=== PATIENT | female | born 1975 | race African-American/Black ===

== ENCOUNTER → 2017-01-24 | Outpatient (CLI) | payer MEDICAID | LOC: FIMAGING 17:29 | PROVIDERS: ATTEND Physician Assistant | DX: M25.562 Pain in left knee (principal) ==

== ENCOUNTER → 2017-01-30 | Outpatient (CLI) | payer MEDICAID | LOC: FIMAGING 14:56 | PROVIDERS: ATTEND Family Medicine Sports Medicine | DX: M70.50 Other bursitis of knee, unspecified knee (principal) ==

== ENCOUNTER → 2018-03-24 | Outpatient (CLI) | payer BC | LOC: FIMAGING 13:38 | PROVIDERS: ATTEND Obstetrics & Gynecology | DX: D25.9 Leiomyoma of uterus, unspecified (principal); N85.8 Other specified noninflammatory disorders of uterus ==

== ENCOUNTER 2018-04-19 08:14 | Emergency (ER) | payer BC ==
--- NOTE | 2018-04-19 08:25 | EDPHY ---
H & P Stated Complaint: worsening pain/swelling from poss stone in salivary gland Time Seen by Provider: 04/19/18 08:23 - Personal History LMP (Females 10-55): Now - Medical/Surgical History Hx Asthma: No Hx Chronic Respiratory Disease: No Hx Diabetes: No Hx Cardiac Disease: No Hx Renal Disease: No Hx Cirrhosis: No Hx Alcoholism: No Hx HIV/AIDS: No Hx Splenectomy or Spleen Trauma: No Other PMH: denies - Social History Smoking Status: Never smoked Constitutional: Initial Vital Signs Temperature (C) 36.7 C 04/19/18 08:19 Heart Rate 82 04/19/18 08:19 Respiratory Rate 18 04/19/18 08:19 Blood Pressure 127/86 H 04/19/18 08:19 O2 Sat (%) 97 04/19/18 08:19 O2 Delivery Mode Room Air Allergies/Adverse Reactions: No Known Allergies Allergy (Unverified 04/19/18 08:16) Home Medications: Medication Instructions Recorded Clindamycin HCl [Cleocin HCl] 150 mg PO QID #40 capsule 04/19/18 Penicillin G Potassium 04/19/18 oxyCODONE IR [Oxycodone Ir (*)] 5 - 10 mg PO Q6 PRN #20 tab 04/19/18 Medical Decision Making - Diagnostics Imaging Results: Imaging Impressions Neck CT 04/19/18 08:38 Impression: 1. There is a 9 x 6 x 11 mm sialolith at the anterior margin of the right submandibular Chaffee's duct with associated distention of the duct. There is no evidence of a submandibular abscess or adenopathy. 2. There is a 1.4 x 1.9 x 1.6 cm low-density cystic lesion associated with the central/left paracentral portion of the sella turcica with some suprasellar extension. This patient have any endocrine or visual abnormality? If there is further clinical concern, dedicated MR imaging of the brain with attention to the sella turcica could be considered. Findings were discussed with Saul Vences MD at 9:51 AM, on 04/19/2018. Imaging: Discussed imaging studies w/ call center nurse Radiologist, I viewed and interpreted images myself ED Course/Re-evaluation: CHIEF COMPLAINT: Swollen chin and neck HISTORY OF PRESENT ILLNESS: The patient is a 42 y/o female complaining of worsening pain and swelling in her tongue, chin, and neck onset 4 days ago. She was seen at [facility] who sent her to ENT. The ENT physician thought the patient's symptoms might be due to a salivary stone and prescribed the patient Penicillin and Decadron. These prescriptions mildly improved her symptoms, but the pain has increased since finishing the prescriptions. Denies headache, numbness, paresthesias, shortness of breath, chest pain, abdominal pain, urinary or bowel complaints, fever. REVIEW OF SYSTEMS: A 10 point review of systems was performed and is negative with the exception of the elements mentioned in the history of present illness. PHYSICAL EXAM: HR, BP, O2 Sat, RR. Temp noted General Appearance: Alert, well hydrated, appropriate, and non-toxic appearing. Head: Atraumatic without scalp tenderness or obvious injury Eyes: Pupils equal, round, reactive to light and accommodation, EOMI, no trauma , no injection. Ears: Clear bilaterally, no perforation, normal landmarks Nose: Atraumatic, no rhinorrhea, clear. Throat: There is no erythema or exudates, no lesions, normal tonsils, mucus membranes moist. Neck: Right submandibular lymphadenopathy. Supple and nontender. Respiratory: No retractions, no distress, no wheezes, and no accessory muscle use. Lungs are clear to auscultation bilaterally. Cardiovascular: Regular rate and rhythm, no murmurs, rubs, or gallops. Good capillary refill all extremities. Gastrointestinal: Abdomen is soft, nontender, non-distended, no masses, no rebound, no guarding, no peritoneal signs. Musculoskeletal: Normal active ROM of all extremities, atraumatic. Neurological: Alert, appropriate, and interactive. Nonfocal neuro. Skin: No rashes, good turgor, no nodules on palpation. Past medical history: Denies Past surgical history: Denies Family history: Denies Social history: Lives in [place], single, not employed DIAGNOSTICS/PROCEDURES/CRITICAL CARE TIME: CT Neck Soft Tissue: [id number] stone in the submandibular duct. There is also an abnormality of the sella turcica that will need an endocrinology follow up. DIFFERENTIAL DIAGNOSIS: The differential diagnosis for the patient's chin and neck pain included but was not limited to pneumonia, salivary stone, viral syndrome, meningitis, and sepsis. MEDICAL DECISION MAKING: The patient is a 42 y/o female presenting with worsening pain and swelling in her tongue, chin, and neck onset 4 days ago. On exam she has a well circumscribed, freely movable, painful, right submandibular lymphadenopathy. Labs and CT Neck Soft Tissue ordered; 1mg IV Dilaudid administered. 0953: I spoke with Dr. Ramachandran, radiologist, regarding neck CT. There is a [id number] stone in the submandibular duct. 1000: I consulted with Dr. Mcgarry, ENT, regarding this patient. He agrees to follow up with this patient tomorrow as an outpatient. I have prescribed her Clindamycin and OxyIR. 10mg IV Decadron administered prior to discharge. 1006: Reassessed patient and discussed imaging findings. She is comfortable with plan for outpatient follow up and prescriptions. - Data Points Laboratory Results: Laboratory Results 04/19/18 08:45 04/19/18 08:45 04/19/18 04/19/18 04/19/18 08:50 08:45 08:45 WBC 13.70 10^3/uL H 10^3/uL (3.80-9.50) RBC 4.67 10^6/uL 10^6/uL (4.18-5.33) Hgb 12.0 g/dL L g/dL (12.6-16.3) POC Hgb 12.9 gm/dL gm/dL (12.6-16.3) Hct 38.4 % % (38.0-47.0) POC Hct 38 % % (38-47) MCV 82.2 fL fL (81.5-99.8) MCH 25.7 pg L pg (27.9-34.1) MCHC 31.3 g/dL L g/dL (32.4-36.7) RDW 13.3 % % (11.5-15.2) Plt Count 453 10^3/uL H 10^3/uL (150-400) MPV 9.4 fL fL (8.7-11.7) Neut % (Auto) 86.4 % H % (39.3-74.2) Lymph % (Auto) 7.9 % L % (15.0-45.0) [place] % (Auto) 5.0 % % (4.5-13.0) Eos % (Auto) 0.0 % L % (0.6-7.6) Baso % (Auto) 0.1 % L % (0.3-1.7) Nucleat RBC Rel Count 0.0 % % (0.0-0.2) Absolute Neuts (auto) 11.83 10^3/uL H 10^3/uL (1.70-6.50) Absolute Lymphs (auto) 1.08 10^3/uL 10^3/uL (1.00-3.00) Absolute Monos (auto) 0.69 10^3/uL 10^3/uL (0.30-0.80) Absolute Eos (auto) 0.00 10^3/uL L 10^3/uL (0.03-0.40) Absolute Basos (auto) 0.02 10^3/uL 10^3/uL (0.02-0.10) Absolute Nucleated RBC 0.00 10^3/uL 10^3/uL (0-0.01) Immature Gran % 0.6 % % (0.0-1.1) Immature Gran # 0.08 10^3/uL 10^3/uL (0.00-0.10) POC Sodium 142 mEq/L mEq/L (135-145) Sodium 144 mEq/L mEq/L (135-145) POC Potassium 3.6 mEq/L mEq/L (3.3-5.0) Potassium 4.1 mEq/L mEq/L (3.3-5.0) POC Chloride 108 mEq/L mEq/L (97-110) Chloride 108 mEq/L mEq/L (97-110) Carbon Dioxide 22 mEq/l mEq/l (22-31) Anion Gap 14 mEq/L mEq/L (8-16) POC BUN 12 mg/dL mg/dL (7-23) BUN 12 mg/dL mg/dL (7-23) Creatinine 1.0 mg/dL mg/dL (0.6-1.0) POC Creatinine 1.0 mg/dL mg/dL (0.6-1.0) Estimated GFR > 60 Glucose 116 mg/dL H mg/dL (70-100) POC Glucose 120 mg/dL H mg/dL (70-100) Calcium 9.5 mg/dL mg/dL (8.5-10.4) Medications Given: Discontinued Medications Dexamethasone (Decadron Injection) 10 mg IVP EDNOW ONE Stop: 04/19/18 10:04 Last Admin: 04/19/18 10:07 Dose: 10 mg Hydromorphone HCl (Dilaudid) 1 mg IVP EDNOW ONE Stop: 04/19/18 08:52 Last Admin: 04/19/18 09:26 Dose: 1 mg Oxycodone/Acetaminophen (Percocet 5/325mg Prepack#4) 1 btl TAKEHOME EDNOW ONE Stop: 04/19/18 10:05 Last Admin: 04/19/18 10:10 Dose: 1 btl Point of Care Test Results: Chemistry 04/19/18 08:50 POC Sodium 142 mEq/L mEq/L (135-145) POC Potassium 3.6 mEq/L mEq/L (3.3-5.0) POC Chloride 108 mEq/L mEq/L (97-110) POC BUN 12 mg/dL mg/dL (7-23) POC Creatinine 1.0 mg/dL mg/dL (0.6-1.0) POC Glucose 120 mg/dL H mg/dL (70-100) ISTAT H&H 04/19/18 08:50 POC Hgb 12.9 gm/dL gm/dL (12.6-16.3) POC Hct 38 % % (38-47) Departure - Departure Disposition: Home, Routine, Self-Care Clinical Impression: Submandibular duct obstruction Condition: Good Instructions: Sialoadenitis (ED) Additional Instructions: 1. Follow up with Dr. Mcgarry in his office tomorrow. 2. Take Clindamycin as prescribed. 3. Take OxyIR as prescribed for pain. 4. There is also an abnormality of the sella turcica that will need an endocrinology follow up. You have been referred to Dr. Muhammad. Referrals: Jayme Acosta [Primary Care Provider] - As per Instructions Lloyd Muhammad MD [Medical Doctor] - As per Instructions Alvarado Mcgarry MD [Medical Doctor] - As per Instructions Prescriptions: Clindamycin HCl [Cleocin HCl] 150 mg PO QID #40 capsule oxyCODONE IR [Oxycodone Ir (*)] 5 - 10 mg PO Q6 PRN #20 tab PRN Reason: Pain, Severe Report Scribed for: Saul Vences Report Scribed by: Hailee Umaña Date of Report: 04/19/18 Time of Report: 08:29
[2018-04-19] MEDS ORDERED: HYDROmorphONE/DILAUDID 2 MG/ML INJ IVP ONE (08:51)
[2018-04-19 08:59] LABS: PLATELET COUNT 453 10^3/uL (150-400)
[2018-04-19] MEDS ORDERED: IOPAMIDOL (ISOVUE-300) 100 ML BTL ONE (08:59)
[2018-04-19] MEDS ORDERED: HYDROmorphONE/DILAUDID 1 MG/ML INJ ONE (09:24)
[2018-04-19] MEDS ORDERED: DEXAMETHASONE 10 MG/ML VIAL IVP ONE (10:03)
[2018-04-19] MEDS ORDERED: OXYCODONE/APAP 5/325MG PREPACK#4 BTL TAKEHOME ONE (10:04)
[2018-04-19 10:16] VITALS: BP 120/80
== END 2018-04-19 10:16 | disposition home or self-care (01) ==
DX: K11.8 Other diseases of salivary glands (principal)
CPT/HCPCS: 82435-PO; 82565-PO; 82947-PO; 84132-PO; 84295-PO; 84520-PO; 85014-PO; 96374; J1100; J1170; Q9967

== ENCOUNTER 2018-04-23 09:00 | Observation (INO) | payer BC ==
[2018-04-23] MEDS ORDERED: LR 1,000 ML IV ONE (09:38)
[2018-04-23] MEDS ORDERED: MIDAZOLAM 2 MG/2 ML VIAL IVP ONE (09:39)
--- NOTE | 2018-04-23 09:39 | PDANEPAE ---
ANE History of Present Illness R submandibular stone excision ANE Past Medical History - Cardiovascular History Hx Hypertension: No Hx Arrhythmias: No Hx Chest Pain: No Hx Coronary Artery / Peripheral Vascular Disease: No Hx CHF / Valvular Disease: No Hx Palpitations: No - Pulmonary History Hx COPD: No Hx Asthma/Reactive Airway Disease: Yes Hx Recent Upper Respiratory Infection: No Hx Oxygen in Use at Home: No Hx Sleep Apnea: No Sleep Apnea Screening Result - Last Documented: Negative Pulmonary History Comment: hx of asthma- pt denies any problems currently - Neurologic History Hx Cerebrovascular Accident: No Hx Seizures: No Hx Dementia: No - Endocrine History Hx Diabetes: No - Renal History Hx Renal Disorders: No - Liver History Hx Hepatic Disorders: No - Neurological & Psychiatric Hx Hx Neurological and Psychiatric Disorders: Yes Neurological / Psychiatric History Comment: anxiety - Cancer History Hx Cancer: No - Congenital Disorder History Hx Congenital Disorders: No - GI History Hx Gastrointestinal Disorders: Yes Gastrointestinal History Comment: hx of gastric bypass - Other Health History Other Health History: none - Chronic Pain History Chronic Pain: No - Surgical History Prior Surgeries: gastric bypass. panniculectomy ANE Review of Systems Review of systems is: negative Review of Systems: - Exercise capacity METS (RN): 4 METS ANE Patient History - Allergies Allergies/Adverse Reactions: No Known Allergies Allergy (Verified 04/23/18 09:40) - Home Medications Home medications: home medication list seen and reviewed Home Medications: Amitriptyline HCl [Elavil 50 mg (*)] 50 mg PO HS 04/23/18 [Last Taken 04/22/18] Clindamycin HCl [Clindamycin] 300 mg PO TID 04/23/18 [Last Taken 04/22/18 21:00] Ferrous Sulfate [Ferrous Sulf 325 MG (*)] 325 mg PO DAILY 04/23/18 [Last Taken 04/22/18] Topiramate [Topamax 25MG (*)] 25 mg PO BID 04/23/18 [Last Taken 04/22/18 21:00] Zolpidem Tartrate [Ambien 5MG (*)] 10 mg PO HS 04/23/18 [Last Taken 04/22/18] clonazePAM [klonoPIN (*)] 1 mg PO BID PRN 04/23/18 [Last Taken 04/21/18] oxyCODONE IR [Oxycodone Ir (*)] 5 mg PO DAILY 04/23/18 [Last Taken 04/22/18] - NPO status NPO Since - Liquids (Date): 04/23/18 NPO Since - Liquids (Time): 05:00 - Anes Hx Anes Hx: no prior problems - Smoking Hx Smoking Status: Never smoked - Family Anes Hx Family Anes Hx: none Family Hx Anesthesia Complications: none ANE Labs/Vital Signs - Vital Signs Vital Signs: reviewed preoperatively; see RN documention for details Height: 175.26 cm Weight: 104.326 kg ANE Physical Exam - Airway Neck exam: decreased ROM Mallampati Score: Class 2 Mouth exam: normal dental/mouth exam - Pulmonary Pulmonary: no respiratory distress - Cardiovascular Cardiovascular: regular rate and rhythym - ASA Status ASA Status: II ANE Anesthesia Plan Anesthesia Plan: general endotracheal anesthesia
[2018-04-23] MEDS ORDERED: DEXAMETHASONE 10 MG/ML VIAL IVP ONE (09:45)
[2018-04-23] MEDS ORDERED: ceFAZolin 2 GM/DEXTROSE 100 ML IV ONE (09:45)
--- NOTE | 2018-04-23 09:45 | PDHPUP ---
History & Physical Update H&P update statement: This history and physical update is based on an assessment of the patient which was completed after admission or registration (within 24 hours), but prior to the surgery/procedure. H&P update: H&P reviewed & patient examined, no change in patient's condition since H&P completed
[2018-04-23] MEDS ORDERED: LIDOCAINE 1% 300 MG/30 ML SDV ONE (10:09)
[2018-04-23] MEDS ORDERED: BACITRACIN ZINC 14.2 GM OINTTUBE TP ONE (10:09)
[2018-04-23] MEDS ORDERED: EPINEPHrine 1 MG/ML INJ ONE (10:10)
[2018-04-23] MEDS ORDERED: DEXAMETHASONE 4 MG/ML VIAL ONE (10:35)
[2018-04-23] MEDS ORDERED: LIDOCAINE 2% 100 MG/5 ML SYR ONE (10:35)
[2018-04-23] MEDS ORDERED: ROCURONIUM 50 MG/5 ML VIAL ONE ×2 (10:35→12:22)
[2018-04-23] MEDS ORDERED: ONDANSETRON 4 MG/2 ML VIAL ONE ×2 (10:35→11:14)
[2018-04-23] MEDS ORDERED: fentaNYL 250 MCG/5 ML INJ ONE (10:36)
[2018-04-23] MEDS ORDERED: PROPOFOL 200 MG/20 ML VIAL ONE ×2 (10:37→12:21)
[2018-04-23] MEDS ORDERED: GLYCOPYRROLATE 0.2 MG/1 ML VIAL ONE ×2 (11:14→12:40)
[2018-04-23] MEDS ORDERED: NEOSTIGMINE METHYLSULFATE 10 MG/10 ML MDV ONE (11:14)
[2018-04-23] MEDS ORDERED: MEPERIDINE 25 MG/0.5 ML AMP IVP PRN ×2 (11:26→13:25)
[2018-04-23] MEDS ORDERED: HYDROCODONE/APAP 5/325 TAB PO PRN ×2 (11:26→13:25)
[2018-04-23] MEDS ORDERED: ACETAMINOPHEN 500 MG TAB PO PRN ×2 (11:26→13:25)
[2018-04-23] MEDS ORDERED: ALBUTEROL 3 ML DEYVIAL IH PRN (11:26)
[2018-04-23] MEDS ORDERED: HYDROmorphONE/DILAUDID 1 MG/ML INJ IVP PRN ×2 (11:26→13:25)
[2018-04-23] MEDS ORDERED: NALOXONE HCL 0.4 MG/ML INJ IVP PRN ×2 (11:26→13:25)
[2018-04-23] MEDS ORDERED: oxyCODONE IR 5 MG TAB PO PRN ×2 (11:26→13:25)
[2018-04-23] MEDS ORDERED: DEXAMETHASONE 4 MG/ML VIAL IVP PRN (11:26)
[2018-04-23] MEDS ORDERED: ONDANSETRON 4 MG/2 ML VIAL IVP PRN ×2 (11:26→13:07)
[2018-04-23] MEDS ORDERED: PROMETHAZINE HCL 25 MG/ML INJ IVP PRN ×2 (11:26→13:25)
--- NOTE | 2018-04-23 11:30 | POSTANESTH ---
Post Anesthetic Evaluation Cardiovascular Status: Similar to Pre-Op Cond Respiratory Status: Similar to Pre-op Cond. Level of Consciousness/Mental Status: Can Participate in Eval, Mildly Sleepy, Arousable Pain Control: Adequate, Prn Tx Ordered Nausea/Vomiting Control: Adequate, Prn Tx Ordered Complications Possibly Related to Anesthesia: None Noted
--- NOTE | 2018-04-23 13:02 | POSTOPPROG ---
Post Op Note Date of Operation: 04/23/18 Surgeon: Alvarado Mcgarry Gas Pumper: Bob Urrutia MD, Gisele BHATIA Anesthesiologist: ASHOK Anesthesia: GET(General Endotracheal) Pre-op Diagnosis: Right submandibular gland sialoadenitis and sialolithiasis Post-op Diagnosis: Same Indication: Severe right submandibular gland infection with impacted stone Procedure: Excision of right submanbibular gland Findings: severely indurated gland, the marginal br of CN VII was preserved Inf/Abcess present in the surg proc area at time of surgery?: Yes Depth: Organ Space (pus and swelling of the right submand gland) EBL: 50-100 Complications: none Drains: [place] (1/4" sushma drain) Specimen(s): right submandibular gland
[2018-04-23] MEDS ORDERED: D5W LR 1,000 ML IV SCH (13:15)
[2018-04-23] MEDS ORDERED: fentaNYL 100 MCG/2 ML INJ ONE (13:24)
[2018-04-23] MEDS ORDERED: fentaNYL 100 MCG/2 ML INJ IVP PRN (13:25)
[2018-04-23] MEDS: fentaNYL 100 MCG/2 ML INJ IVP PRN ×2 (13:28→13:40)
--- NOTE | 2018-04-23 13:41 | GOP ---
[f rep st] OPERATIVE REPORT DATE OF OPERATION: 04/23/2018 SURGEON: Alvarado Mcgarry MD TELETYPEWRITER INSTALLER: Bob Urrutia MD and Gisele Farah PA-C ANESTHESIA: General. PREOPERATIVE DIAGNOSIS: Right submandibular gland sialoadenitis and sialolithiasis. POSTOPERATIVE DIAGNOSIS: Right submandibular gland sialoadenitis and sialolithiasis. PROCEDURE PERFORMED: Right submandibular gland excision. FINDINGS: Severely indurated swollen right submandibular gland. The marginal mandibular branch of t he right facial nerve was identified and preserved. The lingual nerve and hypoglossal nerve were hakeem ntified and preserved. I did not find the stone within the duct and I could not palpate it within th e gland, although it may have been present. We also probed the right submandibular duct with lacrima l probes and did not locate a stone from the transoral direction either. SPECIMENS: Right submandibular gland. ESTIMATED BLOOD LOSS: Less than 50 cc. INDICATIONS: The patient is a 42-year-old woman with severe right submandibular gland sialoadenitis, is found to have a stone within the gland. She was not responding well to antibiotic therapy and pr esents for surgical intervention in hopes of resolving this problem. DESCRIPTION OF PROCEDURE: Patient was taken the OR, positively identified, placed on monitors and ge neral anesthesia was induced. The patient was placed under general anesthesia. Her neck was prepped and draped in normal sterile fashion. An incision was marked and infiltrated with 1% lidocaine with 1:100,000 of epinephrine. The skin was sharply incised. Dissection was then carried down to the platysma. Dissection continue d down staying inferiorly along the lower edge of the gland. We then find the capsule superiorly. T here was some very enlarged facial lymph nodes in the area that were identified as well. I was able locate the marginal mandibular branch of the facial nerve. This was double checked with the [place] n erve stimulator low at a 0.4 setting of power, and indeed, the lower lip did move. This nerve was le ft undisturbed, and we continued to operate staying far below this region and lifting fascia up super iorly to help protect the nerve itself. The facial vein was identified, clamped, cut, and ligated wi th 3-0 Vicryl. The digastric muscle was identified. This forming the deep and inferior portion of t he dissection. Following the fascial planes, the gland was rotated anteriorly. The facial artery wa s not identified, presumably it is behind the gland and we did not have to deal with it at all. The hypoglossal and lingual nerves were identified after pulling the mylohyoid muscle anteriorly. The st ellate ganglion was divided. The submandibular duct was clamped, cut, and ligated. The gland was re moved from the wound and palpated. I did not feel a stone. I then palpated the floor of the mouth f rom below and was unable to identify any stone. Dr. Urrutia then placed a Champ mouth gag in the patient's mouth and felt the floor of the mouth palpa ting from transorally while I had my finger in the wound from below. We were unable to feel a stone. He then passed a lacrimal probe along the duct to the point where I had tied it off, and again, we did not feel any stone. At this point, the case was terminated as the decision being made that the stone most likely was with in the indurated and swollen gland, and no longer present within the duct, although there is a small possibility this could be the case. The wound was irrigated with sterile saline. The [place] drain was placed in the wound, and the wound was then closed with interrupted 3-0 Vicryl, 4-0 Vicryl, and 5 -0 Prolene, followed by a sterile dressing. The patient tolerated procedure well. COMPLICATIONS: None. /[id number]/MODL
[2018-04-23] MEDS: DEXAMETHASONE 4 MG/ML VIAL IVP SCH ×2 (14:56→21:44)
[2018-04-23] MEDS: CLINDAMYCIN 900 MG/DEXTROSE 50 ML IV SCH ×2 (15:19→21:45)
[2018-04-23] MEDS: HYDROCOD/APAP 7.5/325 IN 15ML UDCUP PO PRN ×2 (15:53→20:34)
--- NOTE | 2018-04-23 18:45 | SOAPPROG ---
SOAP Progress Note Assessment/Plan: Assessment: Pt doing well, good pain control. Facial nerve functioning well. Plan: Discharge in the morning, likely can remove the sushma drain at that time. 04/23/18 18:44 Subjective: I feel OK Objective: Vital Signs Temp Pulse Resp BP Pulse Ox 36.8 C 89 18 150/94 H 98 04/23/18 16:35 04/23/18 17:35 04/23/18 17:35 04/23/18 17:35 04/23/18 17:35 04/22/18 04/23/18 04/24/18 05:59 05:59 05:59 Intake Total 960 Output Total 40 Balance 920 Neck flat and FN working fine. ICD10 Worksheet Patient Problems: Problems Problem Status Onset Submandibular gland infection Acute - ICD10 Problem Qualifiers (1) Submandibular gland infection
[2018-04-24] MEDS: CLINDAMYCIN 900 MG/DEXTROSE 50 ML IV SCH (05:09)
[2018-04-24] MEDS: DEXAMETHASONE 4 MG/ML VIAL IVP SCH (05:09)
[2018-04-24 07:23] VITALS: BP 125/79
[2018-04-24] MEDS: HYDROCOD/APAP 7.5/325 IN 15ML UDCUP PO PRN (08:11)
--- NOTE | 2018-04-24 08:41 | SOAPPROG ---
SOAP Progress Note Assessment/Plan: pt s/p submandibular galnd excision. doing very well. O- facial nerve intact, drain removed. Plan:Pt doing well. f/u next week for suture removal. Discussed wound care 04/24/18 08:40 Objective: Vital Signs Temp Pulse Resp BP Pulse Ox 36.6 C 81 16 125/79 H 92 04/24/18 07:21 04/24/18 07:21 04/24/18 07:21 04/24/18 07:21 04/24/18 07:21 04/23/18 04/24/18 04/25/18 05:59 05:59 05:59 Intake Total 960 Output Total 890 Balance 70 ICD10 Worksheet Patient Problems: Problems Problem Status Onset Submandibular gland infection Acute
--- NOTE | 2018-04-24 08:48 | ASMTLACE ---
ENEDINA Length of stay for Answers: 1 day current admission Comorbidities - select Answers: Other Notes: Hx of gastric bypass all that apply # of Emergency department Answers: 1-2 visits in the last 6 months Social determinants Answers: Mental health diagnosis (anxiety, depression, pers onality disorders, etc.) Score: 6 Date Signed: 04/24/2018 08:48 AM Electronically Signed By:Alta Guy RN
--- NOTE | 2018-04-24 08:49 | ASMTCMCOM ---
CM Note CM Note Notes: Cart reviewed. 42 year old female s/p mandibular gland stone removal. No needs anticipated at this time. CM avaible should needs arise. Plan: Likely home independently. Date Signed: 04/23/2018 04:07 PM Electronically Signed By:lAta Guy RN
== END 2018-04-24 10:22 | disposition home or self-care (01) ==
LOC: FSGY 09:00 → F3E 13:03
PROVIDERS: ADMIT Otolaryngology; ATTEND Otolaryngology
PROC: 0CBG0ZZ Excision of Right Submaxillary Gland, Open Approach (ICD-10-PCS; principal; 2018-04-23 10:30)
DX: K11.21 Acute sialoadenitis (principal); K11.5 Sialolithiasis; Z98.84 Bariatric surgery status
CPT/HCPCS: 42440; G0378; J0171; J0690; J1100; J2001; J2250; J2405; J2704; J3010

== ENCOUNTER 2018-09-20 09:51 | Emergency (ER) | payer BC ==
[2018-09-20 09:55] VITALS: BP 146/89
--- NOTE | 2018-09-20 10:17 | EDPHY ---
General Time Seen by Provider: 09/20/18 10:10 Narrative: CHIEF COMPLAINT: Wrist pain HISTORY OF PRESENT ILLNESS: Patient presents by private vehicle with complaints of right wrist pain. The pain is present approximately a month. Was feeling better until last week, when she had to move residence. She states pain has return to the right wrist. It is located primarily just below the thumb. Moderate to severe with movement. Improved at rest. Does not radiate. No numbness, tingling weakness but no redness or warmth. No direct trauma or injury. She has no pain in the ipsilateral forearm, elbow or shoulder. No anticoagulation use. No other associated complaints or modifying factors. DOMINANT EXTREMITY: Right-hand dominant ESTABLISHED ORTHOPEDIST: None REVIEW OF SYSTEMS: Ten systems reviewed and are negative unless otherwise noted in the HPI PAST SURGICAL HISTORY: No surgical history SOCIAL HISTORY: Nonsmoker. Lives independently. Works for [email or web address]. FAMILY HISTORY: Noncontributory EXAMINATION: General Appearance: Alert, no distress Cardiovascular: Radial pulses are symmetric 2+. Brisk cap refill the fingers the right hand Neurological: A&O, light and 2 point sensory symmetric. Interossei and insurance service representative strength symmetric. No wrist drop. Skin: Warm and dry, no rash. No petechiae. No purpura. No lymphangitis. No evidence of flexor tenosynovitis. Extremities: Tenderness of the right wrist generally. No snuffbox tenderness. There is no bony tenderness of the metacarpals, phalanges on the right. There is no tenderness of the right olecranon or radial head. Range of motion upper extremities symmetric. All compartments are soft in the upper extremities. Psychiatric: Mood and affect normal DIFFERENTIAL DIAGNOSES: Including but not limited to de quervain tenosynovitis, sprain, strain, fracture , dislocation, subluxation MDM: 10:14 a.m. Right wrist pain that has been present for approximately a month with acute exacerbation after moving this past week. She does have tenderness in the right wrist consistent with a de quervain tenosynovitis. There is no evidence of cellulitis, DVT, compartment syndrome osteomyelitis. No bony tenderness in the hand, right elbow or forearm. Range of motion is intact but painful. There is no evidence of cellulitis or flexor tenosynovitis. I have ordered x- ray as she has not yet been evaluated by this. She is in no acute distress. 10:20 a.m. X-ray as read by me, without radiologist, reveals no acute fracture dislocation. I placed the patient in a thumb spica splint to protect for possible de quervain tenosynovitis. We discussed ice, elevation. We discussed discontinuation of her previous anti-inflammatories and I will place her on a prescription for meloxicam. Discussed short course of steroid. We discussed ED precautions for numbness, tingling, weakness or wrist drop. We discussed follow up with Orthopedics for definitive care. I have answered all her questions. She states that she does not need a work note. She is discharged home stable condition. SUPERVISION: This patient was independently evaluated without direct involvement of or examination by the attending physician. - Diagnostics Imaging: I viewed and interpreted images myself - History Smoking Status: Never smoked - Objective Vital Signs: Initial Vital Signs Temperature (C) 98.1 F 09/20/18 09:52 Heart Rate 78 09/20/18 09:52 Respiratory Rate 16 09/20/18 09:52 Blood Pressure 146/89 H 09/20/18 09:52 O2 Sat (%) 98 09/20/18 09:52 O2 Delivery Mode Room Air Allergies/Adverse Reactions: No Known Allergies Allergy (Verified 09/20/18 09:52) Home Medications: Medication Instructions Recorded Amitriptyline HCl [Elavil 50 mg 50 mg PO HS 04/23/18 (*)] Ferrous Sulfate [Ferrous Sulf 325 325 mg PO DAILY 04/23/18 MG (*)] Topiramate [Topamax 25MG (*)] 25 mg PO BID 04/23/18 Zolpidem Tartrate [Ambien 5MG (*)] 10 mg PO HS 04/23/18 clonazePAM [klonoPIN (*)] 1 mg PO BID PRN 04/23/18 Meloxicam 7.5 mg PO DAILY #15 tablet 09/20/18 methylPREDNISolone [Medrol Dose 1 each PO AD #1 ea 09/20/18 Ted] Departure - Departure Disposition: Home, Routine, Self-Care Clinical Impression: De Quervain's tenosynovitis, right Condition: Good Instructions: De Quervain Disease (ED), Wrist Sprain (ED) Additional Instructions: 1. Right wrist splint as directed as needed. 2. Ice and elevate often 3. Anti-inflammatories as prescribed as needed. 4. Contact Orthopedics for outpatient definitive care. 5. ED precautions as discussed and demonstrated. Referrals: Ratna Rice MD [Primary Care Provider] - As per Instructions Daisy Li MD [Medical Doctor] - As per Instructions Seamus Westbrook MD [[facility] [place] Primary Care Provider] - As per Instructions Prescriptions: Meloxicam 7.5 mg PO DAILY #15 tablet methylPREDNISolone [Medrol Dose Ted] 1 each PO AD #1 ea
== END 2018-09-20 10:36 | disposition home or self-care (01) ==
PROC: 2W3EX1Z Immobilization of Right Hand using Splint (ICD-10-PCS; principal; 2018-09-20)
DX: M65.4 Radial styloid tenosynovitis [de Quervain] (principal)
CPT/HCPCS: L3807